=== PATIENT | male | born 2000 | race Two or more races ===

== ENCOUNTER 2023-04-26 13:11 | Emergency (ER) | payer OTHER ==
[~2023-04-26] VITALS: Ht 167.6 cm; Wt 92.0 kg
[2023-04-26 14:35] VITALS: TEMP 98.3
[2023-04-26] MEDS ORDERED: AMOX TR/POT CLAV 875 MG/125 MG TABLET PO ONE (15:30)
[2023-04-26] MEDS ORDERED: AMOX1TAB16 PO (15:30)
[2023-04-26] MEDS ORDERED: KETOROLAC TROMETHAMINE 60 MG/2 ML VIAL IM ONE (15:30)
[2023-04-26 15:42] VITALS: BP 148/87; PULSE 77; RESP 16
[2023-04-26] MEDS ORDERED: IBUP-1493 PO (15:50)
== END 2023-04-26 16:06 | disposition home or self-care (01) ==
LOC: EMS 13:13
DX: H66.92 Otitis media, unspecified, left ear (principal); Z98.890 Other specified postprocedural states
CPT/HCPCS: 99283; 96372; J1885